=== PATIENT | female | born 1955 | race Caucasian/White ===

== ENCOUNTER 2017-08-22 08:59 | Emergency (ER) | payer SELFPAY ==
--- NOTE | 2017-08-22 10:17 | RAD ---
SINGLE VIEW OF THE CHEST: Comparison: 11-04-14 History: Cough with chest wall discomfort. FINDINGS: Single view of the chest shows a normal sized cardiomediastinal silhouette. There is no evidence of c onsolidation, mass, or pleural effusion. The bones are unremarkable. IMPRESSION: No evidence of acute cardiopulmonary disease. POS: [facility]
== END 2017-08-22 10:36 | disposition home or self-care (01) ==
LOC: ERS 08:59
DX: R07.89 Other chest pain (principal); R05 Cough
CPT/HCPCS: 71045; 93005

== ENCOUNTER 2018-05-12 07:26 | Emergency (ER) | payer MEDICARE, SELFPAY ==
[2018-05-12 08:15] LABS: #Basophils 0.1 thou/uL (0.0-0.2); #Eosinphils 0.1 thou/uL (0.0-0.7); #Lymphocytes 2.2 thou/uL (1.20-3.40); #Monocytes 0.7 thou/uL (0.11-0.59); #Neutrophils 4.5 thou/uL (1.40-6.50); %Basophils 0.8 % (0.0-1.0); %Eosinophils 1.6 % (0.0-10.0); %Lymphocytes 29.3 % (21.0-51.0); %Monocytes 9.2 % (0.0-10.0); %Neutrophils 59.1 % (42.0-75.0); Hemoglobin 13.9 g/dL (12.0-16.0); Mean Corpuscular HGB CONC 32.6 g/dL (32.0-36.0); Mean Corpuscular Hemoglobin 32.3 pg (27.0-31.0); Mean Corpuscular Volume 99.2 fL (78.0-98.0); Mean Platelet Volume 8.4 fL (7.4-10.4); Platelet Count 284 thou/uL (130-400); RBC Distribution Width 12.1 % (11.5-14.5); Red Blood Cell (RBC) Count 4.31 mill/uL (4.20-5.40); White Blood Cell (WBC) Count 7.7 thou/uL (4.8-10.8)
[2018-05-12 08:38] LABS: ALT (SGPT) 14 U/L (8-55); AST (SGOT) 14 U/L (5-34); Albumin 4.3 g/dL (3.4-4.8); Alkaline Phosphatase 90 U/L (40-150); Anion Gap 13 mmol/L (10-20); BUN (Urea Nitrogen) 15 mg/dL (9.8-20.1); Bilirubin, Total 0.5 mg/dL (0.2-1.2); Calc. Creatinine Clearance 0 mL/min (70-130); Calcium 9.9 mg/dL (7.8-10.44); Carbon Dioxide 25 mmol/L (23-31); Chloride 105 mmol/L (98-107); Estimated GFR-MDRD 75; Globulin 3.2 g/dL (2.4-3.5); Glucose 95 mg/dL (80-115); Potassium 3.7 mmol/L (3.5-5.1); Protein, Total 7.5 g/dL (6.0-8.3); Sodium 139 mmol/L (136-145)
[2018-05-12 08:42] LABS: CKMB 0.7 ng/mL (0-6.6); Troponin I Less than 0.010 ng/mL (< 0.028)
--- NOTE | 2018-05-12 09:05 | RAD ---
CHEST 1 VIEW: Date: 05/12/18 INDICATION: Cough. COMPARISON: Prior exam dated 08/22/17. FINDINGS: The low lung volumes accentuate the cardiac silhouette and pulmonary vasculature. The cardiac silhoue tte is mildly prominent, but stable. No confluent air space opacity or pleural effusion is evident. N o acute osseous abnormality is noted. IMPRESSION: Low lung volumes. POS: [facility]
[2018-05-12] MEDS ORDERED: Ketorolac Tromethamine 30 MG/ML VIAL ONE (09:27)
== END 2018-05-12 09:51 | disposition home or self-care (01) ==
LOC: ERS 07:26
DX: M54.5 Low back pain (principal)
CPT/HCPCS: 36415; 71045; 80053; 82553; 84484; 85025; 93005; 96372; J1885